=== PATIENT | male | born 1945 | race Caucasian/White ===

== ENCOUNTER 2017-03-07 10:24 | Emergency (ER) | payer MEDICARE, OTHER ==
[2017-03-07] MEDS ORDERED: OXYMETAZOLINE 30 ML NASAL SPRAY EACHNARE ONE (10:41)
[2017-03-07] MEDS ORDERED: SILVER NITRATE APPLICATOR 1 APPL TP ONE (10:41)
[2017-03-07] MEDS ORDERED: LET GEL TOPICAL 1 EA SYR TP ONE (10:42)
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
[2017-03-07 13:28] VITALS: BP 151/86; PULSE 80; RESP 18; TEMP 97.9; O2SAT 95
== END 2017-03-07 13:28 | disposition home or self-care (01) ==
DX: R04.0 Epistaxis (principal)

== ENCOUNTER 2017-05-07 09:45 | Emergency (ER) | payer OTHER ==
[2017-05-07 09:54] VITALS: BP 188/94; PULSE 74; RESP 18; TEMP 97.3; O2SAT 95
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
== END 2017-05-07 10:40 | disposition home or self-care (01) ==
DX: H72.91 Unspecified perforation of tympanic membrane, right ear (principal); Z86.73 Personal history of transient ischemic attack (TIA), and cerebral infarction without residual deficits; Z79.82 Long term (current) use of aspirin

== ENCOUNTER → 2017-08-27 | Outpatient (CLI) | payer OTHER | LOC: FIMAGING 11:39 | PROVIDERS: ATTEND Family Medicine Geriatric Medicine | DX: M25.551 Pain in right hip (principal); W19.XXXA Unspecified fall, initial encounter ==